=== PATIENT | female | born 1990 | race Caucasian/White ===

== ENCOUNTER 2016-09-22 15:51 | Emergency (ER) | payer BC ==
[2016-09-22] MEDS ORDERED: Lactated Ringer's 1,000 ML IV STA (16:24)
--- NOTE | 2016-09-22 16:44 | ED PDOC ---
HPI: Abdomen Time Seen by Provider: 09/22/16 16:08 Chief Complaint (Nursing): Abdominal Pain Chief Complaint (Provider): Abdominal Pain History Per: Patient History/Exam Limitations: no limitations Onset/Duration Of Symptoms: Days (x2 days) Current Symptoms Are (Timing): Still Present Additional Complaint(s): 25 y/o female who presents to the emergency department with a complaint of abdominal pain and cramping x2 days. Associated with 1 vomiting episode (non bloody) this morning after ingestion of food and medication for the relief of symptoms. Reports her period is watery (not normal) and had used 2 tampons in total. Denies problems with urination, diarrhea, and fever. Of note, patient is concerned because she was diagnosed with ovarian cysts about 3 years ago. In May, patient reports completing a US scan in [place] and having a 3.0-3.8 sized cyst. Past Medical History Reviewed: Historical Data, Nursing Documentation, Vital Signs Vital Signs: Last Vital Signs Temp 98.6 F 09/22/16 15:54 Pulse 76 09/22/16 15:54 Resp 20 09/22/16 15:54 BP 123/53 L 09/22/16 15:54 Pulse Ox 96 09/22/16 16:51 - Medical History Other PMH: Ovarian Cyst - Surgical History Surgical History: No Surg Hx - Family History Family History: States: Diabetes - Social History Current smoker - smoking cessation education provided: No Alcohol: None Drugs: Denies - Home Medications Home Medications: Ambulatory Orders Medication Instructions Recorded Acetaminophen with Codeine 1 tab PO Q4H PRN #15 tab 09/22/16 [Tylenol with Codeine No. 3 300 mg-30 mg] Naproxen [Naprosyn] 1 tab PO BID PRN #60 tab 09/22/16 Ondansetron [Zofran] 4 mg PO Q8H PRN #30 tab 09/22/16 - Allergies Allergies/Adverse Reactions: Allergies Allergy/AdvReac Type Severity Reaction Status Date / Time No Known Allergies Allergy Verified 09/22/16 15:54 Review of Systems ROS Statement: Except As Marked, All Systems Reviewed And Found Negative Constitutional: Negative for: Fever Gastrointestinal: Positive for: Vomiting (1 episode), Abdominal Pain, Other ( cramping). Negative for: Diarrhea, Hematemesis Genitourinary Female: Positive for: Other (Period is watery (not normal)). Negative for: Dysuria, Frequency, Incontinence Physical Exam - Reviewed Nursing Documentation Reviewed: Yes Vital Signs Reviewed: Yes - Physical Exam Appears: Positive for: Non-toxic, In Acute Distress (Moderate painful distress) Head Exam: Positive for: ATRAUMATIC, NORMOCEPHALIC Skin: Positive for: Normal Color, Warm, Dry Eye Exam: Positive for: EOMI, PERRL, Conjunctival injection ENT: Positive for: Other (Moist mucous membranes) Neck: Positive for: Normal, Supple Cardiovascular/Chest: Positive for: Regular Rate, Rhythm. Negative for: Murmur Respiratory: Positive for: Normal Breath Sounds. Negative for: Accessory Muscle Use, Respiratory Distress Gastrointestinal/Abdominal: Positive for: Soft, Tenderness (Suprapubic region). Negative for: Normal Exam, Mass, Distended, Guarding, Rebound Neurologic/Psych: Positive for: Alert, Oriented - Laboratory Results Result Diagrams: 09/22/16 16:59 09/22/16 16:59 - ECG O2 Sat by Pulse Oximetry: 96 (RA) Pulse Ox Interpretation: Normal Medical Decision Making Medical Decision Making: Time: 16:08 Initial impression: Pelvic cramping and menstruation. Differential includes but is not limited to dysmetria, menorrhagia, ovarian cysts, ovarian cysts rupture or torsion Initial plan: --Type and Screen Stat --COMP Metabolic Panel --ED Urine (POC) --ED Urine Dipstick (POC) stat --CBC w/ differential --Partial thromboplastin Time (COAG) --Prothrombin Time (COAG) --Lactated Ringers 1,000 ml IV 1,000 mls/hr --Morphine 3 mg IVP --Toradol 15 mg IVP --Zofran INJ 8 mg IV --IV Insertion --Transvaginal US Stat --Revaluation EXAM: US Pelvis Complete, Transabdominal US Pelvis, Transvaginal CLINICAL HISTORY: Pain; Pelvic pain; Additional info: Severe pelvic pain h/o ovarian cyst TECHNIQUE: Real-time transabdominal and transvaginal pelvic ultrasound (complete) with image documentation. Transvaginal imaging was used for better evaluation of the endometrium and adnexa. EXAM DATE/TIME: 09/22/2016 COMPARISON: No relevant comparison exam is available at the time of interpretation. FINDINGS: Uterus/cervix: No acute findings. The endometrial stripe is normal in appearance and thickness with a maximal thickness of 8 mm. Right ovary: The right ovary is normal in size and appearance. Doppler imaging demonstrates vascular flow in the right ovary. No right adnexal mass is visualized. Left ovary: The left ovary is enlarged, measuring 5 x 3.6 x 5.4 cm. It contains a 4.2 x 4.2 x 3.1 cm heterogeneous, predominantly hypoechoic lesion with no appreciable posterior acoustic enhancement. Doppler imaging demonstrates vascular flow in the left ovary. Free fluid: A trace amount of simple appearing free fluid in the posterior cul- de-sac is likely physiologic. IMPRESSION: 1. 4.2 cm left ovarian lesion as described above. Differential diagnosis favors but is not limited to a hemorrhagic cyst or endometrioma. The ovary is enlarged. Doppler imaging demonstrates vascular flow in the ovary which excludes complete ovarian torsion but partial torsion or intermittent torsion/detorsion cannot be excluded. Follow up per institution protocol. 2. No other evident acute abnormality. Thank you for allowing us to participate in the care of your patient. Dictated and Authenticated by: Chana Stringer MD 09/22/2016 7:05 PM Eastern Time ([place] & [place]) 730p on Reevaluation pt markedly improved. Tolerating PO in ER. Eager to go home. Dw pt findings and plan of care. Scribe Attestation: Documented by Erika Oswald, acting as a scribe for Mai Stephens MD. Provider Scribe Attestation: All medical record entries made by the Scribe were at my direction and personally dictated by me. I have reviewed the chart and agree that the record accurately reflects my personal performance of the history, physical exam, medical decision making, and the department course for this patient. I have also personally directed, reviewed, and agree with the discharge instructions and disposition. Disposition - Clinical Impression Clinical Impression: Ovarian cyst, Dysmenorrhea Counseled Patient/Family Regarding: Studies Performed, Diagnosis, Need For Followup, Rx Given - Disposition Referrals: Claudy Mackenzie DO [Staff Provider] - [employer] [facility] [Outside] Disposition: Routine/Home Disposition Time: 19:30 Condition: IMPROVED Prescriptions: Naproxen [Naprosyn] 1 tab PO BID PRN #60 tab PRN Reason: Pain Acetaminophen with Codeine [Tylenol with Codeine No. 3 300 mg-30 mg] 1 tab PO Q4H PRN #15 tab PRN Reason: Pain Ondansetron [Zofran] 4 mg PO Q8H PRN #30 tab PRN Reason: Nausea/Vomiting Instructions: Ovarian Cyst (ED), Dysmenorrhea (ED)
[2016-09-22 17:10] LABS: BASO # 0.1 K/uL (0.0-0.2); BASO % 0.5 % (0.0-2.0); EOS # 0.1 K/uL (0.0-0.7); EOS % 0.4 % (0.0-4.0); HEMATOCRIT 38.9 % (34.0-47.0); LYMPH # 2.1 K/uL (1.0-4.3); LYMPH % 14.9 % (20.0-40.0); MEAN CELL VOLUME 88.5 fl (81.0-99.0); MEAN CORPUSCULAR HEMOGLOBIN 28.5 pg (27.0-31.0); MEAN CORPUSCULAR HGB CONC 32.2 g/dL (33.0-37.0); MEAN PLATELET VOLUME 9.3 fl (7.2-11.7); MONO # 0.7 K/uL (0.0-0.8); MONO % 4.7 % (0.0-10.0); NEUT # 11.1 K/uL (1.8-7.0); NEUT % 79.5 % (50.0-75.0); RED CELL DISTRIBUTION WIDTH 13.1 % (11.5-14.5)
[2016-09-22 17:23] LABS: ALB/GLOB RATIO 1.3 (1.0-2.1); ALKALINE PHOSPHATASE 74 U/L (38-126); ALT/SGPT 21 U/L (9-52); AST/SGOT 23 U/L (14-36); BILIRUBIN,TOTAL 0.3 mg/dl (0.2-1.3); BLOOD UREA NITROGEN 15 mg/dl (7-17); CALCIUM 9.1 mg/dL (8.4-10.2); CARBON DIOXIDE 23 mmol/L (22-30); CHLORIDE 103 mmol/L (98-107); GFR AFRICAN-AMERICAN > 60; GLUCOSE,RANDOM 108 mg/dL (65-105); POTASSIUM 3.8 MMOL/L (3.6-5.0); SODIUM 141 mmol/l (132-148)
[2016-09-22 17:28] LABS: PARTIAL THROMBOPLASTIN TIME 28.8 SECONDS (23.3-32.5)
[2016-09-22 19:58] VITALS: BP 125/80; PULSE 75; RESP 16; TEMP 98.1; O2SAT 100
--- NOTE | 2016-09-23 08:21 | US ---
Pelvic ultrasound History: Severe pelvic pain, history of ovarian cysts. Comparison: None. Technique: Transabdominal and transvaginal ultrasonography of the pelvis. Findings: The uterus is anteverted and measures 8.2 x 4.5 x 3.9 centimeters. The endometrium appears mildly heterogeneous with possible echogenic debris within it. The endometrium measures 0.8 centimeters. The cervix appears closed and appears to be approximately 3.3 centimeters. No definite cervical abnormality identified. The right ovary measures 2.6 x 2.4 x 1.6 centimeters. Doppler flow seen within the right ovary. The left ovary measures 4.9 x 5.4 x 3.6 centimeters. A complex hypoechoic structure with lacy internal echoes is seen within the left ovary. This measures approximately 4 x 3 x 4 centimeters. This could represent a complex hemorrhagic cyst. Flow is seen within the peripheral ovarian parenchyma. Follow-up to resolution recommended. Small amount of fluid in the cul-de-sac. Impression: Mildly heterogeneous endometrium which could be due to patient's current menstrual cycle. Clinical correlation is requested. Complex hemorrhagic hypoechoic cystic structure with internal lacy echoes noted within the left ovary. This could represent a complex hemorrhagic cyst versus endometrioma. Other possibilities should also be considered. Follow-up to resolution in 1-2 menstrual cycles recommended. Please note that this report is in general agreement with the preliminary report provided by [facility].
== END 2016-09-22 19:59 | disposition home or self-care (01) ==
LOC: H.ER 15:51
DX: N83.209 Unspecified ovarian cyst, unspecified side (principal); N94.6 Dysmenorrhea, unspecified; R10.2 Pelvic and perineal pain
CPT/HCPCS: 76830; 80053; 81025; 85025; 85610; 85730; 86850; 86900; 96361; 96374; 96375; 99284; J1885; J2270; J2405; J7120

== ENCOUNTER 2017-04-20 22:58 | Emergency (ER) | payer BC ==
[2017-04-20 23:12] VITALS: O2SAT 100
[2017-04-20] MEDS ORDERED: Sodium Chloride 0.9% 1,000 ML IV STA (23:19)
--- NOTE | 2017-04-20 23:24 | ED PDOC ---
HPI: Abdomen Time Seen by Provider: 04/20/17 23:01 Chief Complaint (Nursing): Abdominal Pain Chief Complaint (Provider): Abdominal Pain History Per: Patient History/Exam Limitations: no limitations Onset/Duration Of Symptoms: Days (x2) Current Symptoms Are (Timing): Still Present Additional Complaint(s): Etelvina Alonzo is a 26 year old female who presents to the emergency department with a complaint of "crampy" left lower abdominal pain associated with menses, vomiting and nausea. Denied fever, chills, diarrhea, constipation, vaginal discharge or difficulty urinating. Of note, patient was seen in ED on 09/22/16 for similar symptoms which an pelvic US revealed a left ovarian cyst. PMD: none provided Past Medical History Reviewed: Historical Data, Nursing Documentation, Vital Signs Vital Signs: Last Vital Signs Temp 99.1 F 04/20/17 23:09 Pulse 70 04/20/17 23:09 Resp 18 04/20/17 23:09 BP 101/76 04/20/17 23:09 Pulse Ox 100 04/20/17 23:32 - Medical History PMH: No Chronic Diseases - Surgical History Surgical History: No Surg Hx - Family History Family History: States: Diabetes - Social History Current smoker - smoking cessation education provided: No Ex-Smoker (has not smoked in the last 12 months): No Alcohol: None Drugs: Denies - Home Medications Home Medications: Ambulatory Orders Medication Instructions Recorded Acetaminophen with Codeine 1 tab PO Q4H PRN #15 tab 09/22/16 [Tylenol with Codeine No. 3 300 mg-30 mg] Naproxen [Naprosyn] 1 tab PO BID PRN #60 tab 09/22/16 Ondansetron [Zofran] 4 mg PO Q8H PRN #30 tab 09/22/16 - Allergies Allergies/Adverse Reactions: Allergies Allergy/AdvReac Type Severity Reaction Status Date / Time No Known Allergies Allergy Verified 09/22/16 15:54 Review of Systems ROS Statement: Except As Marked, All Systems Reviewed And Found Negative Constitutional: Negative for: Fever, Chills Gastrointestinal: Positive for: Nausea, Vomiting, Abdominal Pain (left lower side). Negative for: Diarrhea, Constipation Genitourinary Female: Positive for: Vaginal Bleeding (menstration). Negative for: Dysuria, Vaginal Discharge Physical Exam - Reviewed Nursing Documentation Reviewed: Yes Vital Signs Reviewed: Yes - Physical Exam Appears: Positive for: Well, Non-toxic, No Acute Distress Head Exam: Positive for: ATRAUMATIC, NORMAL INSPECTION, NORMOCEPHALIC Skin: Positive for: Normal Color Eye Exam: Positive for: Normal appearance ENT: Positive for: Normal ENT Inspection Neck: Positive for: Normal, Painless ROM, Supple. Negative for: Decreased ROM Cardiovascular/Chest: Positive for: Regular Rate, Rhythm, Chest Non Tender Respiratory: Positive for: Normal Breath Sounds, Accessory Muscle Use. Negative for: Decreased Breath Sounds, Respiratory Distress Gastrointestinal/Abdominal: Positive for: Soft, Tenderness (LLQ). Negative for : Normal Exam, Mass Back: Positive for: Normal Inspection. Negative for: L CVA Tenderness, R CVA Tenderness Extremity: Positive for: Normal ROM. Negative for: Tenderness, Pedal Edema, Deformity Neurologic/Psych: Positive for: Alert, Oriented - Laboratory Results Result Diagrams: 04/20/17 23:31 - ECG O2 Sat by Pulse Oximetry: 100 (RA) Pulse Ox Interpretation: Normal Medical Decision Making Medical Decision Making: Initial Impression: LLQ pain Initial Plan: * CMP * Urine * CBC * NS 1,000ml IV per 100mls/hr * Toradol 30mg IVP * Zofran inj 4mg IVP * Urinalysis --US pelvis (09/22/16) Findings: The uterus is anteverted and measures 8.2 x 4.5 x 3.9 centimeters. The endometrium appears mildly heterogeneous with possible echogenic debris within it. The endometrium measures 0.8 centimeters. The cervix appears closed and appears to be approximately 3.3 centimeters. No definite cervical abnormality identified. The right ovary measures 2.6 x 2.4 x 1.6 centimeters. Doppler flow seen within the right ovary. The left ovary measures 4.9 x 5.4 x 3.6 centimeters. A complex hypoechoic structure with lacy internal echoes is seen within the left ovary. This measures approximately 4 x 3 x 4 centimeters. This could represent a complex hemorrhagic cyst. Flow is seen within the peripheral ovarian parenchyma. Follow- up to resolution recommended. Small amount of fluid in the cul-de-sac. Impression: --Mildly heterogeneous endometrium which could be due to patient's current menstrual cycle. Clinical correlation is requested. --Complex hemorrhagic hypoechoic cystic structure with internal lacy echoes noted within the left ovary. This could represent a complex hemorrhagic cyst versus endometrioma. Other possibilities should also be considered. Follow-up to resolution in 1-2 menstrual cycles recommended. Scribe Attestation: Documented by Stephanie Antunez, acting as a scribe for Antoine Vasquez MD. Provider Scribe Attestation: All medical record entries made by the Scribe were at my direction and personally dictated by me. I have reviewed the chart and agree that the record accurately reflects my personal performance of the history, physical exam, medical decision making, and the department course for this patient. I have also personally directed, reviewed, and agree with the discharge instructions and disposition. Disposition - Clinical Impression Clinical Impression: Abdominal pain - Patient ED Disposition Is Patient to be Admitted: Transfer of Care - Disposition Disposition: Transfer of Care Disposition Time: 00:00 Condition: FAIR Forms: [employer] (Hebrew) Patient Signed Over To: Tejinder Linares
[2017-04-20 23:35] LABS: BASO # 0.1 K/uL (0.0-0.2); BASO % 0.5 % (0.0-2.0); EOS % 0.3 % (0.0-4.0); HEMATOCRIT 36.6 % (34.0-47.0); LYMPH # 2.4 K/uL (1.0-4.3); LYMPH % 18.1 % (20.0-40.0); MEAN CELL VOLUME 87.1 fl (81.0-99.0); MEAN CORPUSCULAR HEMOGLOBIN 29.2 pg (27.0-31.0); MEAN CORPUSCULAR HGB CONC 33.5 g/dL (33.0-37.0); MEAN PLATELET VOLUME 8.6 fl (7.2-11.7); MONO # 0.7 K/uL (0.0-0.8); MONO % 5.3 % (0.0-10.0); NEUT # 10.1 K/uL (1.8-7.0); NEUT % 75.8 % (50.0-75.0); RED CELL DISTRIBUTION WIDTH 12.9 % (11.5-14.5); WHITE BLOOD COUNT 13.3 K/uL (4.8-10.8)
[2017-04-20 23:42] LABS: ALB/GLOB RATIO 1.5 (1.0-2.1); ALKALINE PHOSPHATASE 65 U/L (38-126); ALT/SGPT 24 U/L (9-52); AST/SGOT 19 U/L (14-36); BILIRUBIN,TOTAL 0.2 mg/dl (0.2-1.3); BLOOD UREA NITROGEN 11 mg/dl (7-17); CARBON DIOXIDE 24 mmol/L (22-30); CHLORIDE 105 mmol/L (98-107); GFR AFRICAN-AMERICAN > 60; GLUCOSE,RANDOM 101 mg/dL (65-105); SODIUM 140 mmol/l (132-148)
--- NOTE | 2017-04-20 23:57 | ED PDOC ---
- Laboratory Results Result Diagrams: 04/20/17 23:31 04/20/17 23:31 - ECG O2 Sat by Pulse Oximetry: 100 (RA) Pulse Ox Interpretation: Normal Medical Decision Making Medical Decision Making: Time: 00:00 --Patient endorsed to provider by Dr. Antoine Vasquez. Pending CT and US results. Scribe Attestation: Documented by Stephanie Antunez, acting as a scribe for Tejinder Linares MD. Provider Scribe Attestation: All medical record entries made by the Scribe were at my direction and personally dictated by me. I have reviewed the chart and agree that the record accurately reflects my personal performance of the history, physical exam, medical decision making, and the department course for this patient. I have also personally directed, reviewed, and agree with the discharge instructions and disposition. Disposition - Clinical Impression Clinical Impression: Abdominal pain - Disposition Condition: FAIR Forms: [employer] (German)
--- NOTE | 2017-04-20 23:59 | ED PDOC ---
- Laboratory Results Result Diagrams: 04/20/17 23:31 04/20/17 23:31 - ECG O2 Sat by Pulse Oximetry: 100 (RA) Pulse Ox Interpretation: Normal Medical Decision Making Medical Decision Making: Time: 00:00 --Patient endorsed to provider by Dr. Antoine Vasquez. Pending CT and US results. Time: 014 --CT ABD FINDINGS: Lower thorax: No acute findings. ABDOMEN: Liver: Unremarkable. No mass. Gallbladder and bile ducts: Unremarkable. No calcified stones. No ductal dilation. Pancreas: Unremarkable. No mass. No ductal dilation. Spleen: Unremarkable. No splenomegaly. Adrenals: Unremarkable. No mass. Kidneys and ureters: Unremarkable. No solid mass. No hydronephrosis. Stomach and bowel: Unremarkable. No obstruction. No mucosal thickening. Appendix: A normal appendix is identified. PELVIS: Bladder: Unremarkable. No mass. Reproductive: Complex cystic appearing mass in the LEFT pelvis most likely ovarian in origin measuring 5 x 4.5 cm. ABDOMEN and PELVIS: Intraperitoneal space: Unremarkable. No free air. No significant fluid collection. Bones/joints: No acute fracture. No dislocation. Soft tissues: Unremarkable. Vasculature: Unremarkable. No abdominal aortic aneurysm. Lymph nodes: Unremarkable. No enlarged lymph nodes. IMPRESSION: Probable cystic LEFT ovarian mass. Pelvic ultrasound could be obtained for further evaluation. Time: 146 --US transvag FINDINGS: Uterus/cervix: Unremarkable. Normal endometrial stripe thickness. No myometrial mass. Right ovary: Unremarkable. No mass. Normal blood flow. Left ovary: There is a complex LEFT ovarian cyst measuring 4.1 x 2.4 x 3.4 cm. There are internal echoes present. Diagnostic considerations include hemorrhagic cyst and endometrioma. Normal blood flow. Free fluid: No free fluid. IMPRESSION: No ovarian torsion. Large complex LEFT ovarian cyst. Differential diagnosis includes hemorrhagic cyst and endometrioma. Time: 0150 --Upon provider reevaluation, patient is feeling improvement with symptoms, medically stable and requires no further treatment in the ED at this time. Discussed case with Dr. Patricia, her filler feeder, who advised her to follow up in office. Patient will be discharged home with Rx for Tylenol with Codeine and Naprosyn. Counseling was provided, all questions were answered regarding diagnosis and there is agreement to discharge plan. Return if symptoms persist or worsen. Clinical Impression: Left ovarian cyst Scribe Attestation: Documented by Stephanie Antunez, acting as a scribe for Tejinder Linares MD. Provider Scribe Attestation: All medical record entries made by the Scribe were at my direction and personally dictated by me. I have reviewed the chart and agree that the record accurately reflects my personal performance of the history, physical exam, medical decision making, and the department course for this patient. I have also personally directed, reviewed, and agree with the discharge instructions and disposition. Disposition Counseled Patient/Family Regarding: Studies Performed, Diagnosis, Need For Followup, Rx Given - Clinical Impression Clinical Impression: Ovarian cyst - POA Present On Arrival: None - Disposition Referrals: Claudy Mackenzie DO [Staff Provider] - Disposition: Routine/Home Disposition Time: 01:50 Condition: STABLE Additional Instructions: Follow up with Dr Mackenzie in 1-2 weeks Prescriptions: Acetaminophen with Codeine [Tylenol with Codeine #3 Tablet] 1 each PO Q4 #15 tablet Naproxen [Naprosyn] 500 mg PO Q12 #14 tab Instructions: Ovarian Cyst (ED) Forms: [employer] (Mohawk)
[2017-04-21 00:07] LABS: RBC URINE 163 /hpf (0-3); URINE BACTERIA RARE (<OCC); URINE BILIRUBIN NEGATIVE (NEGATIVE); URINE BLOOD LARGE (NEGATIVE); URINE COLOR YELLOW (YELLOW); URINE GLUCOSE (UA) NEG (Normal); URINE KETONE TRACE mg/dL (NEGATIVE); URINE LEUKOCYTE ESTERASE NEG Leu/uL (Negative); URINE PROTEIN NEGATIVE (NEGATIVE); URINE UROBILINOGEN 0.2-1.0 mg/dL (0.2-1.0); WBC URINE 17 /hpf (0-5)
[2017-04-21] MEDS ORDERED: Iohexol 300 100 ML IJ ONE (00:59)
[2017-04-21] MEDS ORDERED: Sodium Chloride 0.9% 50 ML IV ONE (00:59)
[2017-04-21 02:45] VITALS: BP 110/78; PULSE 80; RESP 16; TEMP 98
--- NOTE | 2017-04-21 09:19 | CT ---
PROCEDURE: CT Abdomen and Pelvis with contrast HISTORY: LLQ pain COMPARISON: None. TECHNIQUE: CT scan of the abdomen and pelvis was performed after intravenous administration of contrast. Oral contrast was not administered. Coronal and sagittal reformatted images were obtained. Contrast dose: 90 mL Omnipaque injected intravenously Radiation dose: Total exam DLP = 275.34 mGy-cm. This CT exam was performed using one or more of the following dose reduction techniques: Automated exposure control, adjustment of the mA and/or kV according to patient size, and/or use of iterative reconstruction technique. FINDINGS: LOWER THORAX: The lung bases are clear. LIVER: Normal in size with homogeneous enhancement. No gross lesion or ductal dilatation. GALLBLADDER AND BILE DUCTS: There are no calcified gallstones. PANCREAS: Normal in size with homogeneous enhancement. No gross lesion or ductal dilatation. SPLEEN: Normal in size with homogeneous enhancement. ADRENALS: Normal in size without discrete nodule. KIDNEYS AND URETERS: Both kidneys are normal in size and there is homogeneous enhancement. No hydronephrosis. No solid mass. VASCULATURE: No aortic aneurysm. BOWEL: The small bowel loops are normal in caliber. There is large amount of stool in the colon. No bowel dilatation or obstruction. APPENDIX: Normal appendix. PERITONEUM: No free fluid. No free air. LYMPH NODES: No enlarged lymph nodes. BLADDER: Partially decompressed. REPRODUCTIVE: The uterus is normal in size. There is fluid in the endometrial canal. Please correlate with menstrual history. There is a 5.2 cm complicated cyst with attenuation higher than simple fluid in the left ovary. BONES: No acute fracture. Within normal limits for the patient's age. OTHER FINDINGS: None. IMPRESSION: 1. 5.2 cm complicated/ hemorrhagic cyst in the left ovary. Please correlate with ultrasound of the pelvis for further characterization. 2. Constipation. No evidence of bowel obstruction. A preliminary report was provided by [facility].
--- NOTE | 2017-04-21 09:23 | US ---
HISTORY: left ovarian cyst, r/o torsion COMPARISON: CT abdomen and pelvis performed the same day. TECHNIQUE: Transvaginal pelvic ultrasound was performed. FINDINGS: UTERUS: Measures 8.3 x 3.8 x 3.6 cm. Normal in size and appearance. No fibroid or other mass lesion seen. ENDOMETRIUM: Measures 9.0 mm in diameter. Unremarkable. CERVIX: No cervical abnormality identified. RIGHT OVARY: Measures 2.4 x 1.7 x 2.0 cm. No solid mass. Normal flow. LEFT OVARY: Measures 5.7 x 3.8 x 4.6 cm. No solid mass. Normal flow. There is a 4.1 x 2.4 x 3.4 cm cyst with homogeneous increased internal echoes. FREE FLUID: No significant free fluid noted. OTHER FINDINGS: None. IMPRESSION: 4.1 cm hemorrhagic cyst/endometrioma in the left ovary. No evidence of ovarian torsion. Follow-up ultrasound in 3-6 months interval is recommended to assess stability/resolution. A preliminary report was provided by [facility]..
== END 2017-04-21 02:46 | disposition home or self-care (01) ==
LOC: H.ER 22:58
DX: N83.202 Unspecified ovarian cyst, left side (principal); K59.00 Constipation, unspecified
CPT/HCPCS: 74177; 76830; 80053; 81003; 81025; 85025; 96374; 96375; 99283; J1885; J2405; J7040; Q9967

== ENCOUNTER 2017-11-17 11:53 | Emergency (ER) | payer BC ==
[2017-11-17 12:00] VITALS: BP 103/66; PULSE 75; RESP 20; TEMP 97.9; O2SAT 100
--- NOTE | 2017-11-17 12:27 | ED PDOC ---
HPI: General Adult Time Seen by Provider: 11/17/17 12:05 Chief Complaint (Nursing): Upper Extremity Problem/Injury Chief Complaint (Provider): arm pain History Per: Patient, Family (spouse) History/Exam Limitations: no limitations Onset/Duration Of Symptoms: Days (2) Have you had recent travel within the past 21 days to any of the following countries: [place], [place], [place] or [place]?: No Current Symptoms Are (Timing): Still Present Severity: Severe Pain Scale Rating Of: 9 Additional Complaint(s): pt p/w + 2 days onset of left arm pain, worsening; pt states she has been practicing [employer]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 for 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 as well as doing yoga and states NO fall/trauma; pt was awaken at 2am 2 days ago with severe left arm pain (lateral region, from shoulder down to her left forearm), pt also noted right wrist pain at hyperextension positions; pt took aleve (2 tabs) yesterday and felt some relief; pt states pain at worse is rated 9/10; pt was again awoken by the same pain overnight today; pt became concern and came to the ED for further eval; pt states no numbness/tingling, no fever/chills/sweats, no cp/sob/palpitations, no abd pain, no n/v, no urinary/bowel changes, no fall/trauma/sick contact, no travel; pt is here for further eval; pt's without other complaints. PCP: ?? right hand dominate PMHx: left ovarian cysts/endometriosis Past Medical History Reviewed: Historical Data, Nursing Documentation, Vital Signs Vital Signs: Last Vital Signs Temp 97.9 F 11/17/17 11:58 Pulse 75 11/17/17 11:58 Resp 20 11/17/17 11:58 BP 103/66 11/17/17 11:58 Pulse Ox 100 11/17/17 11:58 - Surgical History Surgical History: No Surg Hx - Family History Family History: States: Diabetes - Living Arrangements Living Arrangements: With Family - Social History Current smoker - smoking cessation education provided: No Ex-Smoker (has not smoked in the last 12 months): No Alcohol: None Drugs: Denies - Home Medications Home Medications: Ambulatory Orders Medication Instructions Recorded Acetaminophen with Codeine 1 tab PO Q4H PRN #15 tab 09/22/16 [Tylenol with Codeine No. 3 300 mg-30 mg] Naproxen [Naprosyn] 1 tab PO BID PRN #60 tab 09/22/16 Ondansetron [Zofran] 4 mg PO Q8H PRN #30 tab 09/22/16 Acetaminophen with Codeine 1 each PO Q4 #15 tablet 04/21/17 [Tylenol with Codeine #3 Tablet] Naproxen [Naprosyn] 500 mg PO Q12 #14 tab 04/21/17 Diazepam [Valium] 2 mg PO TID PRN #10 tablet 11/17/17 Ibuprofen [Motrin] 400 mg PO QID PRN #30 tab 11/17/17 - Allergies Allergies/Adverse Reactions: Allergies Allergy/AdvReac Type Severity Reaction Status Date / Time No Known Allergies Allergy Verified 11/17/17 11:57 Review of Systems ROS Statement: Except As Marked, All Systems Reviewed And Found Negative Constitutional: Negative for: Fever, Chills, Sweats, Weakness Eyes: Negative for: Pain ENT: Negative for: Ear Pain, Nose Pain Cardiovascular: Negative for: Chest Pain, Palpitations, Paroxysmal Noc. Dyspnea Respiratory: Negative for: Cough, Shortness of Breath, SOB with Exertion Gastrointestinal: Negative for: Nausea, Vomiting, Abdominal Pain Genitourinary Female: Negative for: Dysuria, Hematuria Musculoskeletal: Positive for: Shoulder Pain, Arm Pain (left), Other (right wrist pain). Negative for: Neck Pain, Back Pain, Hand Pain, Leg Pain, Foot Pain Skin: Negative for: Rash Neurological: Negative for: Weakness, Altered Mental Status, Headache, Dizziness Psych: Negative for: Anxiety, Depression, Psychosis Physical Exam - Reviewed Nursing Documentation Reviewed: Yes Vital Signs Reviewed: Yes (WNL) - Physical Exam Comments: General: alert/awake, GCS = 15, oriented x 3, resting in bed, + comfortable, cooperative, interactive; NAD Head: NC/AT EYE: PERRLA, EOMI, sclera anicteric, no nystagmus, no photophobia Facial: WNL Oral: uvula/tongue are midline, no exudate/lesions, no drooling/stridor, no dysphonia; intact dentitions NECK: intact ROM, no midline tenderness, no nuchal rigidity, no meningeal signs ; no step off Chest: CTA b/l, no w/r/r; no tachypenia, no accessory muscle use noted Cardiac: +S1, +S2, no m/r/r, no tachycardia Abdominal: +BS, soft/nd/nt, well nourished patient; no masses/rebound/guarding/ rigidity; no ramos's sign, no mcburney's point tenderness Extremities: intact ROM to all limbs, strength 5/5 grossly intact in all limbs, neurovasc intact b/l; + ambulatory; reflex +2/2; no gross swelling/edema noted b /l, no opal's sign b/l BACK: no step off, no midline tenderness, NO crepitus, no gross deformities noted; Intact ROM; mild tenderness illicited on palpation of left mid posterior shoulder region, no crepitus/gross deformities noted SKIN: cap refill < 1 sec, no ulcerations, no petechiae, no rashes; no gross pallor NEURO: CNII-XII WNL, no facial asymmetries, no slurr speech, oriented x 3 NIH stroke scale ~ 0 Psych: normal insight, normal affect; follows command with ease - ECG O2 Sat by Pulse Oximetry: 100 Pulse Ox Interpretation: Normal - Radiology X-Ray: Interpreted by Me, Viewed By Me - Progress ED Course And Treament: Prelim xray reading right wrist xray - no acute fx/dislocation noted left elbow xray - no acute fx/dislocation noted left shoulder xray - NO acute fx/dislocation noted 1:15 pm - pt is comfortable pt is not in any distress pt is made aware of her medical results pt is encouraged avoid heavy lifting/avoid repetitive motions pt will f/u as directed pt will be discharged home Re-evaluation Time: 13:16 Condition: Improved Medical Decision Making Medical Decision Making: Impression: left arm pain, right wrist pain; atrumatic i have consider all the differential diagnosis regarding pt's chief medical complaints/clinical findings, including but are not limited to: likely musculoskeletal strain, repetitive stress injury, Unlikely fx/dislocation A/P: left arm pain, right wrist pain; atrumatic - xray - pain control - supportive care - observe/reevaluation Disposition - Clinical Impression Clinical Impression: Repetitive stress injury, Left upper arm pain, Strain of wrist, right - Patient ED Disposition Is Patient to be Admitted: No Counseled Patient/Family Regarding: Diagnosis, Need For Followup, Rx Given - Disposition Referrals: PCP,SHARAN [Non-Staff] - Ginny Fong MD [Staff Provider] - Horacio Will MD [Medical Doctor] - [facility] [Outside] Licensed Insurance Agent [facility] [Outside] [facility] [Outside] Disposition: Routine/Home Disposition Time: 13:11 Condition: STABLE Additional Instructions: Make sure to see your doctor in 1-2 days DRINK PLENTY OF FLUIDS take your medications as prescribed AVOID repetitive stress/AVOID prolonged workouts AVOID heavy lifting possibly cutback on using [employer] for workouts until your symptoms are improved RETURN TO ED IF worse pain, cant breath, persistent vomiting, high fever >101- 102 for hours, altered behavior, slurr speech, facial changes, focal weakness ( arm/leg or both), unable to urinate, heavy/persistent bleeding, passing out, chest pain, or other medical emergencies Prescriptions: Diazepam [Valium] 2 mg PO TID PRN #10 tablet PRN Reason: Muscle Spasm Ibuprofen [Motrin] 400 mg PO QID PRN #30 tab PRN Reason: Pain, Mild (1-3) Instructions: Common Wrist Injuries (DC), Muscle Strain (DC) Print Language: PERSIAN
--- NOTE | 2017-11-17 14:04 | RAD ---
PROCEDURE: Right Wrist Radiographs. HISTORY: right wrist pain, doing aerosilks?, no trauma COMPARISON: None. FINDINGS: BONES: Bone alignment and mineralization are normal. There is no acute displaced fracture or bone destruction. JOINTS: Normal. No dislocation. SOFT TISSUES: Normal. No radiopaque foreign body. OTHER FINDINGS: None. IMPRESSION: No acute fracture or dislocation.
--- NOTE | 2017-11-17 14:05 | RAD ---
PROCEDURE: Radiographs of the Left Shoulder HISTORY: left arm pain, doing aerosilks?, no trauma COMPARISON: No prior. FINDINGS: BONES: Bone alignment and mineralization are normal. There is no acute displaced fracture or bone destruction. JOINTS: Normal. Glenohumeral and acromioclavicular joints preserved. SOFT TISSUES: Normal. OTHER FINDINGS: None. IMPRESSION: No acute fracture or dislocation.
--- NOTE | 2017-11-17 14:07 | RAD ---
PROCEDURE: Radiographs of the left elbow. HISTORY: left arm pain, doing aerosilks?, no trauma COMPARISON: No prior. FINDINGS: BONES: Bone alignment and mineralization are normal. There is no acute displaced fracture or bone destruction. JOINTS: Normal. SOFT TISSUES: Normal. JOINT EFFUSION: None. OTHER FINDINGS: None IMPRESSION: No acute fracture or dislocation.
== END 2017-11-17 13:54 | disposition home or self-care (01) ==
LOC: H.ER 11:53
DX: S66.911A Strain of unspecified muscle, fascia and tendon at wrist and hand level, right hand, initial encounter (principal); Z87.891 Personal history of nicotine dependence; X50.3XXA Overexertion from repetitive movements, initial encounter

== ENCOUNTER 2018-09-13 04:46 | Emergency (ER) | payer BC ==
[2018-09-13] MEDS ORDERED: Sodium Chloride 0.9% 1,000 ML IV STA (05:37)
--- NOTE | 2018-09-13 05:43 | ED PDOC ---
HPI: Abdomen Time Seen by Provider: 09/13/18 05:27 Chief Complaint (Nursing): Abdominal Pain Chief Complaint (Provider): Abdominal Pain History Per: Patient History/Exam Limitations: no limitations Onset/Duration Of Symptoms: Hrs (x4) Additional Complaint(s): 27 y/o female with history of ovarian cyst and possible endometriosis presents to the ED with abdominal pain, onset since 1 am. Patient states that she started her menstrual cycle for x2 days. She reports worsening cramps this e vening and was awoken by severe pain as well as nausea and 3 episodes of vomiting. Patient states she took Aleve but she vomited it. Patient feels somewhat improved now. Denies any fever or urinary symptoms. RADIO JOURNALIST: Gurdeep Past Medical History Reviewed: Historical Data, Nursing Documentation, Vital Signs Vital Signs: Last Vital Signs Temp 98.2 F 09/13/18 05:02 Pulse 83 09/13/18 05:02 Resp 16 09/13/18 05:02 BP 110/76 09/13/18 05:02 Pulse Ox 98 09/13/18 05:02 - Medical History Other PMH: Ovarian cyst; endometriosis - Family History Family History: States: Diabetes - Home Medications Home Medications: Ambulatory Orders Medication Instructions Recorded Acetaminophen with Codeine 1 tab PO Q4H PRN #15 tab 09/22/16 [Tylenol with Codeine No. 3 300 mg-30 mg] Naproxen [Naprosyn] 1 tab PO BID PRN #60 tab 09/22/16 Ondansetron [Zofran] 4 mg PO Q8H PRN #30 tab 09/22/16 Acetaminophen with Codeine 1 each PO Q4 #15 tablet 04/21/17 [Tylenol with Codeine #3 Tablet] Naproxen [Naprosyn] 500 mg PO Q12 #14 tab 04/21/17 Diazepam [Valium] 2 mg PO TID PRN #10 tablet 11/17/17 Ibuprofen [Motrin] 400 mg PO QID PRN #30 tab 11/17/17 Naproxen [Naprosyn] 500 mg PO BID PRN #20 tablet 09/13/18 Ondansetron ODT [Zofran ODT] 4 mg PO Q8H PRN #20 odt 09/13/18 - Allergies Allergies/Adverse Reactions: Allergies Allergy/AdvReac Type Severity Reaction Status Date / Time No Known Allergies Allergy Verified 11/17/17 11:57 Review of Systems ROS Statement: Except As Marked, All Systems Reviewed And Found Negative Constitutional: Negative for: Fever Gastrointestinal: Positive for: Nausea, Vomiting, Abdominal Pain Genitourinary Female: Negative for: Dysuria, Frequency, Incontinence Physical Exam - Reviewed Nursing Documentation Reviewed: Yes Vital Signs Reviewed: Yes - Physical Exam Appears: Positive for: Well, Non-toxic, No Acute Distress Head Exam: Positive for: ATRAUMATIC, NORMAL INSPECTION, NORMOCEPHALIC Skin: Positive for: Normal Color, Warm, DRY Eye Exam: Positive for: EOMI, Normal appearance, PERRL ENT: Positive for: Normal ENT Inspection Neck: Positive for: Normal, Painless ROM Cardiovascular/Chest: Positive for: Regular Rate, Rhythm. Negative for: Murmur Respiratory: Positive for: Normal Breath Sounds. Negative for: Respiratory Distress Gastrointestinal/Abdominal: Positive for: Tenderness (mild diffuse) Back: Positive for: Normal Inspection. Negative for: L CVA Tenderness, R CVA Tenderness Extremity: Positive for: Normal ROM. Negative for: Pedal Edema, Deformity Neurological/Psych: Positive for: Awake, Alert, Normal Tone. Negative for: Motor/Sensory Deficits - Laboratory Results Result Diagrams: 09/13/18 05:45 09/13/18 05:45 - ECG O2 Sat by Pulse Oximetry: 98 (RA) Pulse Ox Interpretation: Normal Medical Decision Making Medical Decision Making: Time: 05:36 Impression: 27 y/o with abdominal pain in setting of known ovarian cyst and endometriosis Initial Plan: * Labs * IV fluids * Toradol * US Transvaginal 07:00 Patient care endorsed to Dr. Lr pending US Transvaginal. ----- Scribe Attestation: Documented by Stephan Ward, acting as a scribe Fozia Linares MD Provider Scribe Attestation: All medical record entries made by the Scribe were at my direction and personally dictated by me. I have reviewed the chart and agree that the record accurately reflects my personal performance of the history, physical exam, medical decision making, and the department course for this patient. I have also personally directed, reviewed, and agree with the discharge instructions and disposition Disposition - Clinical Impression Clinical Impression: Ovarian cyst - Patient ED Disposition Is Patient to be Admitted: Transfer of Care - Disposition Referrals: Claudy Mackenzie DO [Family Provider] - Disposition: Transfer of Care Disposition Time: 07:00 Condition: IMPROVED Prescriptions: Naproxen [Naprosyn] 500 mg PO BID PRN #20 tablet PRN Reason: Pain, Moderate (4-7) Ondansetron ODT [Zofran ODT] 4 mg PO Q8H PRN #20 odt PRN Reason: Nausea/Vomiting Instructions: Ovarian Cysts Forms: [facility] (Niuean) Patient Signed Over To: Martha Lr Handoff Comments: US
[2018-09-13 05:54] LABS: BASO # 0.1 K/uL (0.0-0.2); BASO % 0.6 % (0.0-2.0); EOS % 0.3 % (0.0-4.0); HEMOGLOBIN 10.1 g/dL (12.0-16.0); LYMPH % 10.9 % (20.0-40.0); MEAN CELL VOLUME 88.6 fl (81.0-99.0); MEAN CORPUSCULAR HEMOGLOBIN 29.8 pg (27.0-31.0); MEAN CORPUSCULAR HGB CONC 33.6 g/dL (33.0-37.0); MEAN PLATELET VOLUME 8.8 fl (7.2-11.7); MONO # 0.4 K/uL (0.0-0.8); MONO % 4.9 % (0.0-10.0); NEUT # 7.4 K/uL (1.8-7.0); NEUT % 83.3 % (50.0-75.0); RBC 3.39 Mil/uL (3.80-5.20); RED CELL DISTRIBUTION WIDTH 12.7 % (11.5-14.5); WHITE BLOOD COUNT 8.9 K/uL (4.8-10.8)
[2018-09-13 06:08] LABS: ALB/GLOB RATIO 1.4 (1.0-2.1); ALT/SGPT 25 U/L (9-52); AST/SGOT 24 U/L (14-36); BLOOD UREA NITROGEN 12 mg/dl (7-17); CALCIUM 9.2 mg/dL (8.4-10.2); GFR NON-AFRICAN AMERICAN > 60
--- NOTE | 2018-09-13 07:27 | ED PDOC ---
- Laboratory Results Result Diagrams: 09/13/18 05:45 09/13/18 05:45 Lab Results: Total Bilirubin 0.3 mg/dl (0.2-1.3) 09/13/18 05:45 AST 24 U/L (14-36) 09/13/18 05:45 ALT 25 U/L (9-52) 09/13/18 05:45 Alkaline Phosphatase 71 U/L (38-126) 09/13/18 05:45 Total Protein 6.9 G/DL (6.3-8.2) 09/13/18 05:45 Albumin 4.0 g/dL (3.5-5.0) 09/13/18 05:45 Globulin 2.9 gm/dL (2.2-3.9) 09/13/18 05:45 Albumin/Globulin Ratio 1.4 (1.0-2.1) 09/13/18 05:45 - ECG O2 Sat by Pulse Oximetry: 98 (RA) Pulse Ox Interpretation: Normal Medical Decision Making Medical Decision Making: Time: 7:00 Patient who is resting comfortably at this time was signed out to me by Dr. Linares pending ultrasound. Dr. Gurdeep jacobo. Scribe Attestation: Documented by Shefali Peacock, acting as a scribe for Martha Lr MD. Provider Scribe Attestation: All medical record entries made by the Scribe were at my direction and personally dictated by me. I have reviewed the chart and agree that the record accurately reflects my personal performance of the history, physical exam, medical decision making, and the department course for this patient. I have also personally directed, reviewed, and agree with the discharge instructions and disposition. Disposition - Clinical Impression Clinical Impression: Ovarian cyst - POA Present On Arrival: None - Disposition Referrals: Claudy Mackenzie DO [Family Provider] - Disposition: Routine/Home Disposition Time: 12:45 Condition: IMPROVED Prescriptions: Naproxen [Naprosyn] 500 mg PO BID PRN #20 tablet PRN Reason: Pain, Moderate (4-7) Ondansetron ODT [Zofran ODT] 4 mg PO Q8H PRN #20 odt PRN Reason: Nausea/Vomiting Instructions: Ovarian Cysts Forms: [facility] (Azeri)
[2018-09-13 12:07] VITALS: BP 102/62; PULSE 80; RESP 18; TEMP 98.5
--- NOTE | 2018-09-13 12:21 | US ---
Date of service: 09/13/2018 HISTORY: pelvic pain hx ov cyst COMPARISON: Comparison made with prior pelvic ultrasound 04/14/2018. TECHNIQUE: Transabdominal sonographic evaluation of the pelvis performed. Note that patient refused transvaginal study and will reschedule following cessation of current menstrual cycle as per technologist notation. FINDINGS: UTERUS: Measures 9.7 x 4.9 x 3.3 cm. Anteverted. Normal in size and appearance. No fibroid or other mass lesion seen. ENDOMETRIUM: Measures 2.4 mm in diameter. Unremarkable. CERVIX: No cervical abnormality identified. RIGHT OVARY: Measures 2.1 x 2.4 x 1.6 cm. No solid mass. Normal flow. LEFT OVARY: Measures 4.5 x 5.4 x 3.6 cm. No solid mass. Normal flow. . There is a left-sided ovarian cyst measuring 3.6 x 3.1 x 4.6 cm. FREE FLUID: No significant free fluid noted. OTHER FINDINGS: None. IMPRESSION: Left ovarian cyst as above.
[2018-09-13 12:55] VITALS: O2SAT 98
== END 2018-09-13 13:05 | disposition home or self-care (01) ==
LOC: H.ER 04:46
DX: N83.202 Unspecified ovarian cyst, left side (principal)
CPT/HCPCS: 76856; 80053; 81025; 85025; 96374; 99284; J1885; J7030

== ENCOUNTER 2018-10-14 08:33 | Inpatient (IN) | payer BC ==
[2018-10-14 08:43] VITALS: BMI 19.4
[2018-10-14] MEDS ORDERED: Sodium Chloride 0.9% 1,000 ML IV STA (09:25)
--- NOTE | 2018-10-14 09:45 | ED PDOC ---
HPI: Female Pain Time Seen by Provider: 10/14/18 08:58 Chief Complaint (Nursing): Abdominal Pain Chief Complaint (Provider): Pelvic Pain History Per: Patient History/Exam Limitations: no limitations Onset/Duration Of Symptoms: Days, Worse Since Current Symptoms Are (Timing): Still Present Associated Symptoms: denies: Fever, Vomiting Additional Complaint(s): 27 year old female with a history of endometriosis was referred to the ED by Dr. Dillard. Patient complains of chronic pelvic pain that is worsening. Otherwise, she denies fever, vomiting and declines payment assistance. PMD: [place] iDllard Past Medical History Reviewed: Historical Data, Nursing Documentation, Vital Signs Vital Signs: Last Vital Signs Temp 98.1 F 10/14/18 08:41 Pulse 92 H 10/14/18 08:41 Resp 16 10/14/18 08:41 BP 113/75 10/14/18 08:41 Pulse Ox 97 10/14/18 08:41 - Medical History Other PMH: endometriosis - Family History Family History: States: Diabetes - Home Medications Home Medications: Ambulatory Orders Medication Instructions Recorded No Known Home Med 10/14/18 - Allergies Allergies/Adverse Reactions: Allergies Allergy/AdvReac Type Severity Reaction Status Date / Time No Known Allergies Allergy Verified 11/17/17 11:57 Review of Systems ROS Statement: Except As Marked, All Systems Reviewed And Found Negative Constitutional: Negative for: Fever Gastrointestinal: Negative for: Vomiting Genitourinary Female: Positive for: Pelvic Pain Physical Exam - Reviewed Nursing Documentation Reviewed: Yes Vital Signs Reviewed: Yes - Physical Exam Appears: Positive for: Well, Non-toxic, No Acute Distress Head Exam: Positive for: ATRAUMATIC, NORMAL INSPECTION, NORMOCEPHALIC Skin: Positive for: Normal Color, Warm, Dry. Negative for: Rash Eye Exam: Positive for: EOMI, Normal appearance, PERRL ENT: Positive for: Normal ENT Inspection Neck: Positive for: Normal, Painless ROM, Supple. Negative for: Decreased ROM Cardiovascular/Chest: Positive for: Regular Rate, Rhythm. Negative for: Murmur Respiratory: Positive for: Normal Breath Sounds. Negative for: Respiratory Distress Gastrointestinal/Abdominal: Positive for: Bowel Sounds, Soft, Tenderness (mild diffuse abdominal tenderness). Negative for: Normal Exam Back: Positive for: Normal Inspection. Negative for: L CVA Tenderness, R CVA Tenderness Extremity: Positive for: Normal ROM. Negative for: Tenderness, Pedal Edema, Deformity Neurological/Psych: Positive for: Awake, Alert, Normal Tone, Oriented (x3) - Laboratory Results Result Diagrams: 10/14/18 10:00 10/14/18 12:34 - ECG ECG Rhythm: Positive for: Sinus Rhythm Rate: 60 O2 Sat by Pulse Oximetry: 97 (RA) Pulse Ox Interpretation: Normal Medical Decision Making Medical Decision Making: Time: 09 Impression: Endometriosis Plan: BBK type and screen EKG CMP CBC w/ differential Prothrombin time Chest portable [RAD] Normal saline 999 mls/hr Urine C&S Urinalysis Transvaginal US Reevaluation 09:[address] Dillard 09:[address] dillard who requested the patient be admitted under his name 09:37 Patient admitted for acute on chronic pain and endometriosis 09:40 EKG: sinus rhythm at 60bpm 11:20 Date of service: 10/14/2018 HISTORY: acute on chronic pelvic pain COMPARISON: None available. TECHNIQUE: Transvaginal FINDINGS: UTERUS: Measures 6.6 x 5.6 x 3.7 cm. Normal in size and appearance. No fibroid or other mass lesion seen. ENDOMETRIUM: Measures 7 mm in diameter. Unremarkable. CERVIX: No cervical abnormality identified. RIGHT OVARY: Measures 3.1 x 2.5 x 1.8 cm. No solid mass. Normal flow. LEFT OVARY: Measures 5.2 x 4.7 x 3.7 cm. No solid mass. Normal flow. Complex cyst with low- level echoes, 3.2 x 4.3 x 4.6 cm. This is essentially unchanged from prior ultrasound examination of though evaluation was limited by transabdominal technique at that time. Interval stability suggests the possibility of an endometrioma. Continued follow-up is advised. FREE FLUID: No significant free fluid noted. OTHER FINDINGS: None. IMPRESSION: Stable mildly complex cyst, 4.6 cm greatest dimension. Possible endometrioma. Continued follow-up advised. 13:11 CXR FINDINGS: LUNGS: No active pulmonary disease. PLEURA: No significant pleural effusion identified, no pneumothorax apparent. CARDIOVASCULAR: No atherosclerotic calcification present Normal. OSSEOUS STRUCTURES: No significant abnormalities. VISUALIZED UPPER ABDOMEN: Normal. OTHER FINDINGS: None. IMPRESSION: No active disease. labs reviewed pt stable for admission to [facility] and for eval by Dr Dillard and possible surgery. Scribe Attestation: Documented by Dileep Cruz, acting as a scribe for Esvin Limon MD. Provider Scribe Attestation: All medical record entries made by the Scribe were at my direction and personally dictated by me. I have reviewed the chart and agree that the record accurately reflects my personal performance of the history, physical exam, medical decision making, and the department course for this patient. I have also personally directed, reviewed, and agree with the discharge instructions and disposition. Disposition - Clinical Impression Clinical Impression: Ovarian cyst, Pelvic pain - Patient ED Disposition Is Patient to be Admitted: Yes Counseled Patient/Family Regarding: Studies Performed, Diagnosis - Disposition Disposition Time: 11:20 Condition: STABLE
[2018-10-14 10:42] LABS: BASO % 0.4 % (0.0-2.0); EOS # 0.1 K/uL (0.0-0.7); EOS % 0.9 % (0.0-4.0); HEMOGLOBIN 13.3 g/dL (12.0-16.0); LYMPH # 2.5 K/uL (1.0-4.3); LYMPH % 32.7 % (20.0-40.0); MEAN CELL VOLUME 88.8 fl (81.0-99.0); MEAN CORPUSCULAR HEMOGLOBIN 29.9 pg (27.0-31.0); MEAN CORPUSCULAR HGB CONC 33.7 g/dL (33.0-37.0); MEAN PLATELET VOLUME 9.6 fl (7.2-11.7); MONO # 0.5 K/uL (0.0-0.8); MONO % 6.5 % (0.0-10.0); NEUT # 4.5 K/uL (1.8-7.0); NEUT % 59.5 % (50.0-75.0); NRBC % 0.1 % (0.0-0.0); RBC 4.44 Mil/uL (3.80-5.20); RED CELL DISTRIBUTION WIDTH 13.1 % (11.5-14.5); WHITE BLOOD COUNT 7.5 K/uL (4.8-10.8)
[2018-10-14 10:51] LABS: GRANULAR CAST 6 /lpf (0-1); SQUAMOUS EPITHIAL 2 /hpf (0-5); URINE BACTERIA RARE (<OCC); URINE BILIRUBIN NEGATIVE (NEGATIVE); URINE BLOOD LARGE (NEGATIVE); URINE CLARITY CLOUDY (Clear); URINE COLOR YELLOW (YELLOW); URINE GLUCOSE (UA) NEG (NEGATIVE); URINE LEUKOCYTE ESTERASE SMALL Leu/uL (Negative); URINE PROTEIN 100 mg/dL (NEGATIVE); URINE UROBILINOGEN 0.2-1.0 mg/dL (0.2-1.0)
[2018-10-14 11:00] LABS: INR 1.1; PROTHROMBIN TIME 12.7 Seconds (9.8-13.1)
--- NOTE | 2018-10-14 11:23 | US ---
Date of service: 10/14/2018 HISTORY: acute on chronic pelvic pain COMPARISON: None available. TECHNIQUE: Transvaginal FINDINGS: UTERUS: Measures 6.6 x 5.6 x 3.7 cm. Normal in size and appearance. No fibroid or other mass lesion seen. ENDOMETRIUM: Measures 7 mm in diameter. Unremarkable. CERVIX: No cervical abnormality identified. RIGHT OVARY: Measures 3.1 x 2.5 x 1.8 cm. No solid mass. Normal flow. LEFT OVARY: Measures 5.2 x 4.7 x 3.7 cm. No solid mass. Normal flow. Complex cyst with low-level echoes, 3.2 x 4.3 x 4.6 cm. This is essentially unchanged from prior ultrasound examination of though evaluation was limited by transabdominal technique at that time. Interval stability suggests the possibility of an endometrioma. Continued follow-up is advised. FREE FLUID: No significant free fluid noted. OTHER FINDINGS: None. IMPRESSION: Stable mildly complex cyst, 4.6 cm greatest dimension. Possible endometrioma. Continued follow-up advised.
--- NOTE | 2018-10-14 12:39 | CP.PCM.HP ---
History of Present Illness - History of Present Illness History of Present Illness: 27 yo with acute pelvic pain and abdominal pain , nause and vomiting . patient with multiple emergency admissions in the past month Present on Admission - Present on Admission Any Indicators Present on Admission: No History of DVT/PE: No History of Uncontrolled Diabetes: No Urinary Catheter: No Decubitus Ulcer Present: No History Surgical Site Infection Following: None Review of Systems - Constitutional Constitutional: As Per HPI - EENT Eyes: As Per HPI Nose/Mouth/Throat: absent: As Per HPI, Epistaxis, Nasal Congestion, Nasal Discharge, Nasal Obstruction, Nasal Trauma, Nose Pain, Post Nasal Drip, Sinus Pain, Sinus Pressure, Bleeding Gums, Change in Voice, Dental Pain, Dry Mouth, Dysphagia, Halitosis, Hoarsness, Lip Swelling, Mouth Lesions, Mouth Pain, Odynophagia, Sore Throat, Throat Swelling, Tongue Swelling, Facial Pain, Neck Pain, Neck Mass, Other - Respiratory Respiratory: absent: As Per HPI, Cough, Dyspnea, Hemoptysis, Dyspnea on Exertion, Wheezing, Snoring, Stridor, Pain on Inspiration, Chest Congestion, Excessive Mucous Production, Change in Mucous Color, Pain with Coughing, Other - Gastrointestinal Gastrointestinal: absent: As Per HPI, Abdominal Pain, Belching, Bloating, Change in Bowel Habits, Change in Stool Character, Coffee Ground Emesis, Constipation, Cramping, Diarrhea, Dyspepsia, Dysphagia, Early Satiety, Excessive Flatus, Fecal Incontinence, Heartburn, Hematemesis, Hematochezia, Loose Stools, Melena, Nausea, Odynophagia, Temesmus, Vomiting, Other - Genitourinary Genitourinary: Urinary Urgency - Reproductive: Female Reproductive:Female: Heavy Menses, Abnormal Vaginal Bleeding, Dysmenorrhea, Dyspareunia, Sexual Dysfunction - Menstruation Menstruation: Abnormal Vaginal Bleeding Past Patient History - Infectious Disease Hx of Infectious Diseases: None - Past Social History Smoking Status: Never Smoked - GENITOURINARY/GYNECOLOGICAL Other/Comment: ovarian cyst - PSYCHIATRIC Hx Substance Use: No - SURGICAL HISTORY Hx Surgeries: Yes Other/Comment: left eye surgery - ANESTHESIA Hx Anesthesia: No Meds Allergies/Adverse Reactions: Allergies Allergy/AdvReac Type Severity Reaction Status Date / Time No Known Allergies Allergy Verified 11/17/17 11:57 Physical Exam - GI/Abdominal Exam GI & Abdominal Exam: Guarding, Tenderness - Exam Bimanual exam: Cervical Motion Tendernes, Uterine Tenderness Results - Vital Signs Recent Vital Signs: Last Vital Signs Temp 98.1 F 10/14/18 08:41 Pulse 60 10/14/18 12:13 Resp 16 10/14/18 08:41 BP 113/75 10/14/18 08:41 Pulse Ox 97 10/14/18 12:13 - Labs Result Diagrams: 10/14/18 10:00 Labs: Laboratory Results - last 24 hr 10/14/18 10/14/18 10/14/18 10:00 10:00 10:00 WBC 7.5 RBC 4.44 Hgb 13.3 D Hct 39.5 MCV 88.8 MCH 29.9 MCHC 33.7 RDW 13.1 Plt Count 228 MPV 9.6 Neut % (Auto) 59.5 Lymph % (Auto) 32.7 Mercer % (Auto) 6.5 Eos % (Auto) 0.9 Baso % (Auto) 0.4 Neut # (Auto) 4.5 Lymph # (Auto) 2.5 Mercer # (Auto) 0.5 Eos # (Auto) 0.1 Baso # (Auto) 0.0 PT 12.7 INR 1.1 Urine Color Urine Clarity Urine pH Ur Specific [place] Urine Protein Urine Glucose (UA) Urine Ketones Urine Blood Urine Nitrate Urine Bilirubin Urine Urobilinogen Ur Leukocyte Esterase Urine RBC (Auto) Urine Microscopic WBC Ur Squamous Epith Cells Urine Bacteria Granular Casts (Auto) Blood Type Cancelled Antibody Screen Cancelled BBK History Checked Cancelled 10/14/18 10:00 WBC RBC Hgb Hct MCV MCH MCHC RDW Plt Count MPV Neut % (Auto) Lymph % (Auto) Mercer % (Auto) Eos % (Auto) Baso % (Auto) Neut # (Auto) Lymph # (Auto) Mercer # (Auto) Eos # (Auto) Baso # (Auto) PT INR Urine Color Yellow Urine Clarity Cloudy Urine pH 5.0 Ur Specific [place] 1.024 Urine Protein 100 Urine Glucose (UA) Neg Urine Ketones Negative Urine Blood Large Urine Nitrate Negative Urine Bilirubin Negative Urine Urobilinogen 0.2-1.0 Ur Leukocyte Esterase Small Urine RBC (Auto) 2930 H Urine Microscopic WBC 125 H Ur Squamous Epith Cells 2 Urine Bacteria Rare Granular Casts (Auto) 6 Blood Type Antibody Screen BBK History Checked Assessment & Plan - Assessment and Plan (Free Text) Assessment: acute pelvic pain multiple er admissions ovarian cysts rule out torsion Plan: admit for surgery possible oophorectomy - Date & Time Date: 10/14/18 Time: 12:40
[2018-10-14 12:41] LABS: ALB/GLOB RATIO 1.3 (1.0-2.1); ALBUMIN 3.7 g/dL (3.5-5.0); ALT/SGPT 26 U/L (9-52); AST/SGOT 25 U/L (14-36); BLOOD UREA NITROGEN 12 mg/dl (7-17); CALCIUM 8.1 mg/dL (8.4-10.2); GFR NON-AFRICAN AMERICAN > 60
[2018-10-14 13:01] LABS: GFR NON-AFRICAN AMERICAN > 60
[2018-10-14 13:05] LABS: ALB/GLOB RATIO 1.3 (1.0-2.1); ALBUMIN 3.8 g/dL (3.5-5.0); ALT/SGPT 27 U/L (9-52); AST/SGOT 24 U/L (14-36); BLOOD UREA NITROGEN 11 mg/dl (7-17); CALCIUM 8.4 mg/dL (8.4-10.2)
--- NOTE | 2018-10-14 13:15 | RAD ---
Date of service: 10/14/2018 HISTORY: chest pain COMPARISON: No prior. FINDINGS: LUNGS: No active pulmonary disease. PLEURA: No significant pleural effusion identified, no pneumothorax apparent. CARDIOVASCULAR: No atherosclerotic calcification present Normal. OSSEOUS STRUCTURES: No significant abnormalities. VISUALIZED UPPER ABDOMEN: Normal. OTHER FINDINGS: None. IMPRESSION: No active disease.
[2018-10-14] MEDS ORDERED: Lactated Ringer's 1,000 ML IV SCH ×3 (14:30→21:15)
[2018-10-14] MEDS ORDERED: Bupivacaine 0.5% Inj(30mL) ONE (18:20)
[2018-10-14] MEDS ORDERED: Oxycodone/Acetaminophen 5/325 mg Tab PO PRN (18:23)
[2018-10-14] MEDS ORDERED: Midazolam 2 MG/2 ML VIAL ONE (18:38)
[2018-10-14] MEDS ORDERED: Propofol 10 mg/ml Inj (20 ML) ONE (18:38)
[2018-10-14] MEDS ORDERED: Rocuronium 10 mg/ml (5 ml) ONE ×2 (18:42→19:48)
[2018-10-14] MEDS ORDERED: Lidocaine 2% MPF (5 ml) Inj ONE (18:42)
--- NOTE | 2018-10-14 18:43 | CARD ---
APPROVED REPORT Date of service: 10/14/2018 EKG Measurement Heart [id number] [id number] <Conclusion> Sinus rhythm with marked sinus arrhythmia Otherwise normal ECG
[2018-10-14] MEDS ORDERED: Lactated Ringer's 1,000 ML IV ONE ×2 (19:06→19:10)
[2018-10-14] MEDS ORDERED: Dexamethasone 4 mg/1 ml ONE (19:29)
[2018-10-14] MEDS ORDERED: HYDROmorphone 0.5 mg/0.5 ml ISec IVP PRN (21:08)
[2018-10-15 06:43] LABS: BASO % 0.2 % (0.0-2.0); HEMOGLOBIN 11.4 g/dL (12.0-16.0); LYMPH # 1.1 K/uL (1.0-4.3); LYMPH % 10.2 % (20.0-40.0); MEAN CELL VOLUME 88.2 fl (81.0-99.0); MEAN CORPUSCULAR HEMOGLOBIN 29.4 pg (27.0-31.0); MEAN CORPUSCULAR HGB CONC 33.4 g/dL (33.0-37.0); MEAN PLATELET VOLUME 9.3 fl (7.2-11.7); MONO # 0.4 K/uL (0.0-0.8); NEUT # 8.9 K/uL (1.8-7.0); NEUT % 85.6 % (50.0-75.0); RBC 3.88 Mil/uL (3.80-5.20); RED CELL DISTRIBUTION WIDTH 12.6 % (11.5-14.5); WHITE BLOOD COUNT 10.4 K/uL (4.8-10.8)
[2018-10-15 07:00] LABS: BLOOD UREA NITROGEN 11 mg/dl (7-17); CALCIUM 8.7 mg/dL (8.4-10.2); GFR NON-AFRICAN AMERICAN > 60
[2018-10-15 08:48] VITALS: O2SAT 99
--- NOTE | 2018-10-15 11:43 | CP.PCM.PN ---
Subjective - Date & Time of Evaluation Date of Evaluation: 10/15/18 Time of Evaluation: 07:30 - Subjective Subjective: Patient seen and examined at bedside comfortable. at bedside. Pain well controlled. Able to sleep throughout night without issues. Tolerating diet well. OOB. Denies CP/SOB/fever/dizziness. Objective - Vital Signs/Intake and Output Vital Signs (last 24 hours): Temp Pulse Resp BP Pulse Ox 99.5 F 55 L 20 98/68 L 99 10/15/18 09:00 10/15/18 09:00 10/15/18 09:00 10/15/18 09:00 10/15/18 09:00 Intake and Output: 10/15/18 10/15/18 06:59 18:59 Intake Total 3280 Output Total 900 Balance 2380 - Medications Medications: Current Medications Hydromorphone HCl (Dilaudid) 0.5 mg IVP Q3H PRN PRN Reason: Pain, severe (8-10) Lactated Ringer's (Lactated Ringer's) 1,000 mls @ 125 mls/hr IV .Q8H [facility] [place] Last Admin: 10/14/18 14:58 Dose: 125 mls/hr Lactated Ringer's (Lactated Ringer's) 1,000 mls @ 100 mls/hr IV .Q10H [facility] [place] Last Admin: 10/15/18 01:20 Dose: 100 mls/hr Ketorolac Tromethamine (Toradol) 30 mg IVP 0300,0900,1500,2100 [facility] [place] Last Admin: 10/15/18 08:36 Dose: 30 mg Ondansetron HCl (Zofran Inj) 4 mg IVP Q6 PRN PRN Reason: Nausea/Vomiting Last Admin: 10/14/18 22:02 Dose: 4 mg Oxycodone/Acetaminophen (Percocet 5/325 Mg Tab) 1 tab PO Q4H PRN PRN Reason: Pain, moderate (4-7) Stop: 10/17/18 18:24 - Labs Labs: 10/15/18 06:10 10/15/18 06:20 PT 12.7 Seconds (9.8-13.1) 10/14/18 10:00 INR 1.1 10/14/18 10:00 - GI/Abdominal Exam GI & Abdominal Exam: Soft. absent: Distended, Mass, Pulsatile Mass, Rebound Additional comments: mild periwound tenderness Dressings CDI no drainage Assessment and Plan (1) Ovarian cyst Assessment & Plan: POD#1 s/p robotic endometriosis tissue removal, appendectomy -diet as tolerated -encourage OOB -no heavy lifting -stable for d/c to home -f/u in office within 2 weeks -d/w Dr. Dillard who agrees with above Status: Acute
[2018-10-15 12:27] VITALS: BP 103/66; PULSE 58; RESP 18; TEMP 99.7
--- NOTE | 2018-10-22 07:28 | OP ---
PROCEDURE DATE: 10/14/2018 SURGEON: Carroll Dillard MD POWERHOUSE ATTENDANT: Robert Sanders MD ANESTHESIOLOGIST: Dylan Harrell DO TYPE OF ANESTHESIA: General endotracheal. PREOPERATIVE DIAGNOSES: 1. Incapacitating pelvic pain. 2. Incapacitating abdominal pain. 3. rule out ruptired ovarian cyst POSTOPERATIVE DIAGNOSES: 1. Incapacitating pelvic pain. 2. Incapacitating abdominal pain. 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 Exam under anesthesia. 2. Emergency laparoscopy 3. Cystoscopy. 4. Bilateral ureteral catheterization and injection of IC-Green dye. 5. Robotic da [place] operative laparoscopy. 6. left ovatian cystectomy 7. Excision of endometriosis. 8. Bilateral ureterolysis. 9. Bilateral ovariolysis. Intraop consult dr sanders appendectomy COMPLICATIONS: None. SAMPLES SENT: 1multiple samples sent to pathology INDICATION FOR THE PROCEDURE AND CONSENT: The patient had a long history of pelvic pain with multiple prior admissions to the emergency room in past few weeks,. she presented this morning with sevrere pain . On exam she had cmt and severe tenderness and guarding. pt is known to have severe endometriosis. She was admitted for emergency surgery rule out ovarian cyst. n. The patient had been thoroughly evaluated and counseled regarding the pros and cons of the procedure, the reasonable alternatives, and possible complications. She understood and accepted the risks involved. Literature was provided to the patient. The patient was understanding and given her history and per surgical exam, she was at high risk in an average patient. She accepted all the risks involved, and all the questions had been answered to her satisfaction. FINDINGS OF SURGERY: Genitalia: Normal external genitalia, cervix without lesion and polyps. Hysteroscopy: The cystoscopy was performed to rule out endometriosis and also any interstitial cystitis and also injury. The bladder was normal with no evidence of stone, trigonitis, or cystitis. A positive jet flow was identified in both ureters. Laparoscopy: there was a massive left ovarian cyst that was leaking chocolate fluid and blood. The upper abdomen appeared to be normal. Gallbladder was normal. Liver edges appeared to be normal. Ascending colon and transverse were normal. There was evidence of adhesions, fibrosis, and endometriosis of the rectovaginal and pelvic sidewalls. The appendix appeared to be affected by endometriosis . Both fallopian tubes appeared to be patent. . l. There was also evidence of mild hydroureters. DESCRIPTION OF THE PROCEDURE: Initiation of the case: After adequate anesthesia was obtained, the patient was placed in the dorsal lithotomy position, and with extreme care, placement of the patient with hyperextension and hyperflexing of the hips. At this point, the patient was prepped and draped. The surgeon was gowned and gloved. A timeout was taken according to the hospital procedure and the procedure was started. The surgeon was re-gowned and gloved, and open laparoscopy was performed by making incision in the umbilicus and the fascia was incised. The peritoneum was entered in a blunt fashion, and the cannula was inserted under direct visualization. The abdomen was insufflated, and under direct visualization, three additional ports were inserted in the left upper quadrant, left mid quadrant, and right upper quadrant. once the condition was identified At this point, we proceeded with placement of a trocar and docking of the da [place] Xi robot. At this point, the da [place] Xi robot was brought into the field and docked, and the instruments were inserted under direct visualization. All this with extreme care not to injure the bowel or another area. As per dictation, the upper abdomen appeared to be normal with no evidence of any lesions. At this point, we performed cystoscopy, bilateral ureteral catheterization. A cystoscope was inserted into the bladder under direct visualization and the bladder was visualized. The bladder was free of lesions and tumors. There was no evidence of interstitial cystitis, and there was only mild amount of trigonitis. At this point, both ureters were identified and appeared to be in their normal anatomical position. At this point, utilizing an open 5-Gabonese open-ended catheter, the left ureter was catheterized all the way to the distal ureter, and 5 mL of IC-Green was injected into this ureter. Similarly, the contralateral ureter was catheterized all the way to the distal ureter, and 5 mL of IC-Green was injected into the distal ureter. At this point, the stents were removed, and the cystoscope was removed, and the 16-Gabonese Weeks was inserted into the bladder. At this point, we proceeded with a left ureterolysis. The ureter appeared to be dilated and was clearly identified utilizing IC-Green fluorescent technology. Anesthesia was made in the peritoneum at the top of the pelvic brim, and the incision was then carried down all the way opening the peritoneum all the way down from the pelvic brim, all the way down to the ovarian fossa, extending the incision below the ovary. It was a progressive dissection where the ureter was progressively lateralized and peritoneum was medialized, thus freeing the ureter all the way down to the cross of the uterine vessels. After this was done, the ureter was freed and lateralized, and a larger peritoneum which had been opened, was excised, and sent to pathology. At this point, with the aid of very slow process, I was able to elevate the ovary and proceed with ovariolysis. At this point, we proceeded with a left ovariolysis. The left ovary was adherent to the posterior aspect of the uterus. It was gently dissected in a step by step way. It was peeled off, the ovarian fossa, andan area of extensive fibrosis and endometriosis was exposed. At this point, we proceeded with a right ureterolysis. The ureter was identified again utilizing fluorescent technology on the right hand side and retroperitoneal space was entered, and a full dissection was performed,entering the retroperitoneal space and dissecting the ureter, removing the ureter laterally and the peritoneum medially. A full dissection was performed all the way down to the ovarian fossa and the crossing of the uterine arteries. An area of peritoneum containing endometriosis was dissected and sent to Pathology. At this point, we proceeded with a right ovariolysis. The right ovary was adherent to the peritoneum. It was gently elevated progressively, and dissected off from the peritoneal area. All this done with extreme care to preserve vascularization to the ovary. at this point we proceded with the left ovarian cystectomy the ovarian cyst was drained and the capsule was gently peeled off without damaging the ovary. At this point, we proceeded with treatment of endometriosis and excision of endometriosis. On the left hand side, fibrosis, especially in the left ovarian fossa was excised. In a very progressive step by step fashion, we dissected off fibrosis containing endometriosis and freed up the whole area. The ureters which had been lateralized. Areas of fibrosis and endometriosis were also identified in the posterior cul-de-sac and in the rectovaginal space which was also affected with endometriosis and fibrosis. At this point, we proceeded with the excision of perirectal endometriosis. The rectovaginal area had significant fibrosis and additional endometriosis was dissected from the posterior aspect of the uterus, and the rectovaginal space was entered at the level of the peritoneal reflection. All this done making sure that no damage to the rectum was performed. At this point, endometriosis was also excised from the right uterosacral area which also was affected by fibrosis and endometriosis. At this point, it was checked for hemostasis and appeared to be excellent. Both fallopian tubes were in good condition and patent. At this point the console was handed over to Dr. Sanders from General surgery who proceeded with appendectomy procedure. He will dictate that separately. After he was done we checked for hemostasis and organ integrity and all was normal. At this point, the da [place] Xi robot was removed. The abdomen was desufflated, and the incisions were closed in layers with 0 PDS for the fascia and 4-0 Monocryl for the skin. At the end of the procedure, all tips and instrument counts were correct. The patient tolerated the procedure well and was taken to the recovery room in excellent condition. Gilma NEWBY, Carroll VALENTINE
--- NOTE | 2018-10-22 07:31 | OP ---
OPERATIVE REPORT -Operative Report Date of Procedure: 10/14/2018 Surgeon: Robert Sanders MD Assistant Import Manager: Carroll Dillard MD Anesthesiologist: Dylan Harrell DO Anesthesia: General Endo Pre-op Diagnosis: abdominal pain Post-op Diagnosis: same Procedure/Operation Description: 1-Appendectomy. Brief History: This 27 year old woman was already brought to the operating room by Dr. Dillard when he requested an intraoperative surgical consultation for the appendix. Description of the Procedure: The patient had already been brought to the operating room. Dr. Dillard had already initiated the robotic procedure (separate dictation Dr. Dillard). After taking control of the robotic console the appendix was retracted anteriorly and the mesentery as desiccated with electrocautery to the base. Three 3-0 vicryl endoloops were placed for ligature and the appendix was transected and sent to pathology separately. Hemostasis was deemed adequate. The operation was then turned over to Dr. Dillard (separate dictation). Estimated Blood Loss:___cc Complications: none Specimen: appendix Discharge & Condition: stable MTDD
== END 2018-10-15 16:00 | disposition home or self-care (01) | DRG 743 ==
LOC: H.ER 08:33 → H.ERHOLD 09:37 → H.PEDS 13:44
PROVIDERS: ADMIT Obstetrics & Gynecology Reproductive Endocrinology; ATTEND Obstetrics & Gynecology Reproductive Endocrinology
PROC: 0DTJ4ZZ Resection of Appendix, Percutaneous Endoscopic Approach (ICD-10-PCS; 2018-10-14)
PROC: 0T9B80Z Drainage of Bladder with Drainage Device, Via Natural or Artificial Opening Endoscopic (ICD-10-PCS; 2018-10-14)
PROC: 8E0W4CZ Robotic Assisted Procedure of Trunk Region, Percutaneous Endoscopic Approach (ICD-10-PCS; 2018-10-14)
PROC: 0UB14ZZ Excision of Left Ovary, Percutaneous Endoscopic Approach (ICD-10-PCS; principal; 2018-10-14 16:00)
PROC: 0UB94ZZ Excision of Uterus, Percutaneous Endoscopic Approach (ICD-10-PCS; 2018-10-14 16:00)
PROC: 0UN24ZZ Release Bilateral Ovaries, Percutaneous Endoscopic Approach (ICD-10-PCS; 2018-10-14 16:00)
PROC: 0TN74ZZ Release Left Ureter, Percutaneous Endoscopic Approach (ICD-10-PCS; 2018-10-14 16:00)
PROC: 0TN64ZZ Release Right Ureter, Percutaneous Endoscopic Approach (ICD-10-PCS; 2018-10-14 16:00)
DX: N80.1 Endometriosis of ovary (principal); N83.292 Other ovarian cyst, left side; N80.0 Endometriosis of uterus; N80.3 Endometriosis of pelvic peritoneum; N80.5 Endometriosis of intestine; N73.6 Female pelvic peritoneal adhesions (postinfective); K38.0 Hyperplasia of appendix; G89.29 Other chronic pain